=== PATIENT | male | born 1995 | race Hispanic/Latino ===

== ENCOUNTER 2020-09-05 12:58 | Emergency (ER) | payer SELFPAY ==
[2020-09-05] MEDS ORDERED: Acetaminophen 500 MG TAB ONE (13:12)
--- NOTE | 2020-09-05 13:44 | RAD ---
XR Chest Pa Lat STANDARD History: Chest pain Comparison: None. Findings: Patchy opacities both lower lobes. No pneumothorax. No effusion. No acute osseous abnormali ty. Cardiac silhouette and mediastinal contours are within normal limits. Impression: Mild bibasilar opacities concerning for multifocal pneumonia. No pneumothorax or pneumome diastinum.
== END 2020-09-05 13:55 | disposition home or self-care (01) ==
LOC: ERS 12:58
DX: U07.1 COVID-19 (principal); J12.82 Pneumonia due to coronavirus disease 2019
CPT/HCPCS: 71046

== ENCOUNTER 2021-11-18 07:29 | Emergency (ER) | payer SELFPAY ==
[2021-11-18] MEDS ORDERED: Benzocaine 20% Spray 60 ML CAN ONE (08:46)
[2021-11-18] MEDS ORDERED: Ibuprofen 800 MG TAB ONE (08:46)
== END 2021-11-18 10:12 | disposition home or self-care (01) ==
LOC: ERS 07:29
DX: J02.9 Acute pharyngitis, unspecified (principal); R51.9 Headache, unspecified; R53.81 Other malaise; H61.23 Impacted cerumen, bilateral
CPT/HCPCS: 87081; 87430; 87804; 99283